=== PATIENT | male | born 1945 | race Two or more races ===

== ENCOUNTER 2021-01-13 18:03 | Emergency (ER) | payer OTHER ==
[~2021-01-13] VITALS: Ht 170.2 cm; Wt 77.1 kg
[~2021-01-13 18:03] MED LIST: TRIA25CA
[2021-01-13 18:47] LABS: Basophils # (auto) 0 10 ^3/uL (0-0.2); Basophils % (auto) 0.3 % (0.0-2.0); Eosinophils # (auto) 0.2 10 ^3/uL (0-0.8); Eosinophils % (auto) 2.2 % (0.0-7.0); Hematocrit 44.3 % (41.0-53.0); Hemoglobin 15.3 g/dL (13.5-17.5); Lymphocytes # (auto) 1.8 10 ^3/uL (0.4-5.4); Lymphocytes % (auto) 23.8 % (10.0-50.0); Mean Corpuscular Hemoglobin 30.1 pg (28.0-32.0); Mean Corpuscular Hgb Conc. 34.6 g/dL (32.0-36.0); Mean Corpuscular Volume 87.1 fL (80.0-100.0); Monocytes # (auto) 0.7 10 ^3/uL (0-1.3); Monocytes % (auto) 9.8 % (0.0-12.0); Neutrophils # (auto) 4.9 10 ^3/uL (1.6-8.6); Neutrophils % (auto) 63.9 % (37.0-80.0); Nucleated Red Blood Cells % 0.2 %; Platelet Count (auto) 219 10^3/uL (140-450); Red Blood Cells 5.08 10^6/uL (4.5-5.90); Red Cell Distribution Width 14.1 % (11.8-14.3); White Blood Cell 7.6 10^3/uL (4.4-10.8)
[2021-01-13 19:06] LABS: Albumin 3.9 g/dL (3.4-5.0); Calcium 9.3 mg/dL (8.5-10.1); Magnesium 2.3 mg/dL (1.6-2.6)
[2021-01-13 19:10] LABS: BUN/Creatinine Ratio 15.1; Bilirubin, Total 0.5 mg/dL (0.2-1.0); Total Protein 8.6 g/dL (6.4-8.2)
[2021-01-13 19:14] LABS: Potassium 2.6 mmol/L (3.5-5.1)
[2021-01-13] MEDS ORDERED: POTASSIUM CHL 20 Meq TABLET PO ONE (19:30)
[2021-01-13] MEDS ORDERED: POTASSIUM EFFERVESENT TAB 25 MEQ PO ONE (22:15)
[2021-01-13] MEDS ORDERED: POTASSIUM CHL 20MEQ/100ML 100 ML IV ONE (22:15)
[2021-01-14 00:45] VITALS: BP 137/88
== END 2021-01-14 01:40 | disposition home or self-care (01) ==
LOC: ER 18:03
DX: E87.6 Hypokalemia (principal); T50.2X5A Adverse effect of carbonic-anhydrase inhibitors, benzothiadiazides and other diuretics, initial encounter; E78.5 Hyperlipidemia, unspecified; I10 Essential (primary) hypertension; Y92.89 Other specified places as the place of occurrence of the external cause
CPT/HCPCS: 36415; 80053; 83735; 84132; 85025; 93005; 96365; 96366; 99285; J3480

== ENCOUNTER 2023-02-19 01:10 | Inpatient (IN) | payer OTHER, MEDICAID ==
[~2023-02-19] VITALS: Ht 167.6 cm; Wt 91.8 kg
[2023-02-19 02:06] LABS: Urine WBC None Seen /hpf (0 - 3)
[2023-02-19 02:24] LABS: Urine Bacteria NONE SEEN /hpf (None Seen); Urine Blood 3+ /uL (Negative)
[2023-02-19 02:33] LABS: Basophils # (auto) 0 10 ^3/uL (0-0.2); Basophils % (auto) 0.4 % (0.0-2.0); Eosinophils # (auto) 0.1 10 ^3/uL (0-0.8); Eosinophils % (auto) 0.4 % (0.0-7.0); Hematocrit 47.5 % (41.0-53.0); Hemoglobin 16.3 g/dL (13.5-17.5); Lymphocytes # (auto) 1.1 10 ^3/uL (0.4-5.4); Lymphocytes % (auto) 9.6 % (10.0-50.0); Mean Corpuscular Hemoglobin 29.8 pg (28.0-32.0); Mean Corpuscular Hgb Conc. 34.3 g/dL (32.0-36.0); Mean Corpuscular Volume 86.9 fL (80.0-100.0); Monocytes # (auto) 0.6 10 ^3/uL (0-1.3); Monocytes % (auto) 4.9 % (0.0-12.0); Neutrophils # (auto) 9.8 10 ^3/uL (1.6-8.6); Neutrophils % (auto) 84.7 % (37.0-80.0); Nucleated Red Blood Cells % 0.1 %; Red Blood Cells 5.46 10^6/uL (4.5-5.90); Red Cell Distribution Width 14.2 % (11.8-14.3); White Blood Cell 11.6 10^3/uL (4.4-10.8)
[2023-02-19 02:54] LABS: Albumin 3.8 g/dL (3.4-5.0); BUN/Creatinine Ratio 13.2 (10.0-20.0); Calcium 9.7 mg/dL (8.5-10.1); Potassium 3.4 mmol/L (3.5-5.1)
[2023-02-19 02:57] LABS: Bilirubin, Total 0.6 mg/dL (0.2-1.0); Total Protein 8.1 g/dL (6.4-8.2)
[2023-02-19] MEDS ORDERED: CEPHALEXIN 250 MG CAP PO ONE (03:45)
[2023-02-19] MEDS ORDERED: CEPH-510 PO (03:47)
[2023-02-19] MEDS ORDERED: HYDROcodone-ACET 5/325MG TAB PO PRN (10:30)
[2023-02-19] MEDS ORDERED: NITROGLYCERIN 0.4 MG SL TAB SL PRN (10:30)
[2023-02-19] MEDS ORDERED: ACETAMINOPHEN 325 MG TAB PO PRN (10:30)
[2023-02-19] MEDS ORDERED: MORPHINE SULFATE INJ 2 MG/ml SYRG IV PRN ×2 (10:30)
[2023-02-19] MEDS: hydrALAZINE HCL 20 MG/ML VL IV PRN ×2 (12:09→18:09)
[2023-02-19] MEDS ORDERED: DEXTROSE (50%) 50ML SYRG IV PRN (12:15)
[2023-02-19] MEDS ORDERED: cefTRIAXone 1GM/50ML D5W 50 ML IV ONE (12:15)
[2023-02-19] MEDS ORDERED: CARV25TA55 PO (12:17)
[2023-02-19] MEDS ORDERED: LOS25T PO (12:17)
[2023-02-19] MEDS ORDERED: ATOR40TA52 PO (12:17)
[2023-02-19] MEDS ORDERED: AMLO-496 PO (12:17)
[2023-02-19] MEDS: SODIUM CHLORIDE 0.9% 1,000 ML IV SCH ×2 (12:22→22:39)
[2023-02-19 13:43] LABS: Cholesterol 170 mg/dL (< 200)
[2023-02-19 13:46] LABS: HDL Cholesterol 32 mg/dL (40-59); LDL Cholesterol 115 mg/dL (< 100); Triglycerides 190 mg/dL (< 150)
[2023-02-19] MEDS ORDERED: ALFU10TA33 PO (15:06)
[2023-02-19] MEDS ORDERED: ASPI81CH49 PO (15:06)
[2023-02-19] MEDS ORDERED: POTA10TA51 PO (15:06)
[2023-02-19] MEDS ORDERED: DONE5TAB80 PO (15:06)
[2023-02-19] MEDS ORDERED: SPIR100T4 PO (15:06)
[2023-02-19] MEDS: LOSARTAN POTASSIUM 25 MG TAB PO SCH (16:32)
[2023-02-19] MEDS: amLODIPine BESYLATE 5 MG TAB PO SCH (16:33)
[2023-02-19] MEDS: ACCU-CHEK COMFORT CURVE STRIP VI SCH ×2 (17:30→22:28)
[2023-02-19] MEDS: InsuLIN REG 1unit/0.01ml Soln (100units/ml) SC SCH ×2 (17:33→22:41)
[2023-02-19] MEDS: CARVEDILOL 12.5 MG TAB PO SCH (22:39)
[2023-02-20 06:02] LABS: Basophils # (auto) 0.1 10 ^3/uL (0-0.2); Basophils % (auto) 0.9 % (0.0-2.0); Eosinophils # (auto) 0.1 10 ^3/uL (0-0.8); Eosinophils % (auto) 0.6 % (0.0-7.0); Hematocrit 39.9 % (41.0-53.0); Hemoglobin 14.2 g/dL (13.5-17.5); Lymphocytes # (auto) 1.6 10 ^3/uL (0.4-5.4); Lymphocytes % (auto) 14.8 % (10.0-50.0); Mean Corpuscular Hgb Conc. 35.6 g/dL (32.0-36.0); Mean Corpuscular Volume 84.1 fL (80.0-100.0); Monocytes # (auto) 0.7 10 ^3/uL (0-1.3); Monocytes % (auto) 6.2 % (0.0-12.0); Neutrophils # (auto) 8.5 10 ^3/uL (1.6-8.6); Neutrophils % (auto) 77.5 % (37.0-80.0); Nucleated Red Blood Cells % 0.4 %; Red Blood Cells 4.74 10^6/uL (4.5-5.90); Red Cell Distribution Width 14.1 % (11.8-14.3)
[2023-02-20 06:21] LABS: Albumin 2.8 g/dL (3.4-5.0); Calcium 8.3 mg/dL (8.5-10.1)
[2023-02-20 06:25] LABS: BUN/Creatinine Ratio 13.4 (10.0-20.0); Total Protein 6.4 g/dL (6.4-8.2)
[2023-02-20 06:40] LABS: Potassium 2.6 mmol/L (3.5-5.1)
[2023-02-20] MEDS: InsuLIN REG 1unit/0.01ml Soln (100units/ml) SC SCH ×4 (06:58→22:58)
[2023-02-20] MEDS: ACCU-CHEK COMFORT CURVE STRIP VI SCH ×4 (06:59→22:50)
[2023-02-20] MEDS ORDERED: POTASSIUM CHL 20 Meq TABLET PO ONE ×2 (07:00→16:15)
[2023-02-20] MEDS: SODIUM CHLORIDE 0.9% 1,000 ML IV SCH ×2 (08:15→18:15)
[2023-02-20] MEDS: cefTRIAXone 1GM/50ML D5W 50 ML IV SCH (09:07)
[2023-02-20] MEDS: ATORVASTATIN 20 MG TAB PO SCH (09:56)
[2023-02-20] MEDS: LOSARTAN POTASSIUM 25 MG TAB PO SCH (09:56)
[2023-02-20] MEDS: ENOXAPARIN SOD 40 MG/0.4 ML SYRINGE SC SCH (09:56)
[2023-02-20] MEDS: CARVEDILOL 12.5 MG TAB PO SCH ×2 (09:57→22:35)
[2023-02-20] MEDS: amLODIPine BESYLATE 5 MG TAB PO SCH (09:57)
[2023-02-20] MEDS ORDERED: amLODIPine BESYLATE 5 MG TAB PO SCH (10:00)
[2023-02-20] MEDS ORDERED: LOSARTAN POTASSIUM 25 MG TAB PO SCH (10:00)
[2023-02-20 22:00] VITALS: BP 148/86
[2023-02-20 23:11] VITALS: BP 148/86
[2023-02-21] MEDS: SODIUM CHLORIDE 0.9% 1,000 ML IV SCH ×2 (04:52→15:46)
[2023-02-21 05:00] VITALS: BP 119/73
[2023-02-21] MEDS: ACCU-CHEK COMFORT CURVE STRIP VI SCH ×4 (06:56→21:31)
[2023-02-21] MEDS: InsuLIN REG 1unit/0.01ml Soln (100units/ml) SC SCH ×4 (06:57→21:31)
[2023-02-21 08:00] VITALS: BP 123/78
[2023-02-21 09:00] VITALS: BP 123/78
[2023-02-21] MEDS: cefTRIAXone 1GM/50ML D5W 50 ML IV SCH (09:33)
[2023-02-21] MEDS: ENOXAPARIN SOD 40 MG/0.4 ML SYRINGE SC SCH (09:33)
[2023-02-21] MEDS: ATORVASTATIN 20 MG TAB PO SCH (09:34)
[2023-02-21] MEDS: LOSARTAN POTASSIUM 25 MG TAB PO SCH (09:34)
[2023-02-21] MEDS: amLODIPine BESYLATE 5 MG TAB PO SCH (09:35)
[2023-02-21] MEDS: CARVEDILOL 12.5 MG TAB PO SCH ×2 (09:45→21:32)
[2023-02-21 10:33] LABS: Basophils # (auto) 0 10 ^3/uL (0-0.2); Basophils % (auto) 0.2 % (0.0-2.0); Eosinophils # (auto) 0.1 10 ^3/uL (0-0.8); Hematocrit 39.2 % (41.0-53.0); Hemoglobin 13.3 g/dL (13.5-17.5); Lymphocytes # (auto) 1.6 10 ^3/uL (0.4-5.4); Lymphocytes % (auto) 17.9 % (10.0-50.0); Mean Corpuscular Hemoglobin 29.9 pg (28.0-32.0); Mean Corpuscular Hgb Conc. 33.9 g/dL (32.0-36.0); Mean Corpuscular Volume 88.2 fL (80.0-100.0); Monocytes # (auto) 0.6 10 ^3/uL (0-1.3); Monocytes % (auto) 7.4 % (0.0-12.0); Neutrophils # (auto) 6.5 10 ^3/uL (1.6-8.6); Neutrophils % (auto) 73.5 % (37.0-80.0); Red Blood Cells 4.45 10^6/uL (4.5-5.90); Red Cell Distribution Width 14.3 % (11.8-14.3); White Blood Cell 8.8 10^3/uL (4.4-10.8)
[2023-02-21 10:46] LABS: Albumin 2.7 g/dL (3.4-5.0); Calcium 8.2 mg/dL (8.5-10.1)
[2023-02-21 10:51] LABS: Bilirubin, Total 0.6 mg/dL (0.2-1.0)
[2023-02-21 10:56] LABS: Potassium 2.9 mmol/L (3.5-5.1)
[2023-02-21] MEDS: POTASSIUM CHL 20 Meq TABLET PO SCH ×2 (12:15→15:42)
[2023-02-21 13:00] VITALS: BP 160/90
[2023-02-21] MEDS ORDERED: IOHEXOL 300 MG/ML 100ML BOTTLE IJ ONE (16:38)
[2023-02-21 17:00] VITALS: BP 156/87
[2023-02-21] MEDS: FINASTERIDE 5 MG TAB PO SCH (20:19)
[2023-02-21] MEDS: TAMSULOSIN HYDROCHLORIDE 0.4 MG CAP PO SCH (20:19)
[2023-02-21 22:00] VITALS: BP 131/75
[2023-02-22] VITALS (7 sets, daily range): BP systolic 119–177; BP diastolic 67–91
[2023-02-22] MEDS: SODIUM CHLORIDE 0.9% 1,000 ML IV SCH ×3 (03:22→20:15)
[2023-02-22] MEDS: InsuLIN REG 1unit/0.01ml Soln (100units/ml) SC SCH ×4 (06:26→21:43)
[2023-02-22] MEDS: ACCU-CHEK COMFORT CURVE STRIP VI SCH ×4 (06:32→21:43)
[2023-02-22] MEDS: cefTRIAXone 1GM/50ML D5W 50 ML IV SCH (09:32)
[2023-02-22] MEDS: FINASTERIDE 5 MG TAB PO SCH (09:34)
[2023-02-22] MEDS: ATORVASTATIN 20 MG TAB PO SCH (09:35)
[2023-02-22] MEDS: amLODIPine BESYLATE 5 MG TAB PO SCH (09:36)
[2023-02-22] MEDS: CARVEDILOL 12.5 MG TAB PO SCH ×2 (09:36→21:55)
[2023-02-22] MEDS: LOSARTAN POTASSIUM 25 MG TAB PO SCH (09:36)
[2023-02-22] MEDS ORDERED: GADOTERATE MEG 10 MMOL/20ml INJ (0.5MMOL/ml) IV ONE (11:19)
[2023-02-22] MEDS: TAMSULOSIN HYDROCHLORIDE 0.4 MG CAP PO SCH (17:34)
[2023-02-22 18:30] LABS: Albumin 2.8 g/dL (3.4-5.0); BUN/Creatinine Ratio 15.6 (10.0-20.0); Calcium 8.4 mg/dL (8.5-10.1)
[2023-02-22 18:40] LABS: Bilirubin, Total 0.4 mg/dL (0.2-1.0); Total Protein 6.4 g/dL (6.4-8.2)
[2023-02-23] VITALS (7 sets, daily range): BP systolic 129–150; BP diastolic 74–88
[2023-02-23] MEDS: SODIUM CHLORIDE 0.9% 1,000 ML IV SCH ×2 (06:09→17:53)
[2023-02-23] MEDS: ACCU-CHEK COMFORT CURVE STRIP VI SCH ×4 (06:10→22:00)
[2023-02-23] MEDS: InsuLIN REG 1unit/0.01ml Soln (100units/ml) SC SCH ×4 (06:10→22:00)
[2023-02-23 06:43] LABS: Basophils # (auto) 0 10 ^3/uL (0-0.2); Basophils % (auto) 0.3 % (0.0-2.0); Eosinophils # (auto) 0.1 10 ^3/uL (0-0.8); Eosinophils % (auto) 1.4 % (0.0-7.0); Hematocrit 41.1 % (41.0-53.0); Hemoglobin 14.2 g/dL (13.5-17.5); Lymphocytes # (auto) 1.3 10 ^3/uL (0.4-5.4); Lymphocytes % (auto) 16.3 % (10.0-50.0); Mean Corpuscular Hemoglobin 30.2 pg (28.0-32.0); Mean Corpuscular Hgb Conc. 34.5 g/dL (32.0-36.0); Mean Corpuscular Volume 87.5 fL (80.0-100.0); Monocytes # (auto) 0.5 10 ^3/uL (0-1.3); Monocytes % (auto) 6.8 % (0.0-12.0); Neutrophils % (auto) 75.2 % (37.0-80.0); Nucleated Red Blood Cells % 0.1 %; Red Cell Distribution Width 13.9 % (11.8-14.3)
[2023-02-23 06:54] LABS: Albumin 2.7 g/dL (3.4-5.0); BUN/Creatinine Ratio 15.4 (10.0-20.0); Calcium 8.2 mg/dL (8.5-10.1)
[2023-02-23 06:57] LABS: Bilirubin, Total 0.6 mg/dL (0.2-1.0); Total Protein 6.6 g/dL (6.4-8.2)
[2023-02-23 06:59] LABS: Potassium 2.9 mmol/L (3.5-5.1)
[2023-02-23] MEDS: POTASSIUM CHL 20 Meq TABLET PO SCH ×3 (08:16→22:14)
[2023-02-23] MEDS: FINASTERIDE 5 MG TAB PO SCH (09:48)
[2023-02-23] MEDS: amLODIPine BESYLATE 5 MG TAB PO SCH (09:49)
[2023-02-23] MEDS: CARVEDILOL 12.5 MG TAB PO SCH ×2 (09:49→22:13)
[2023-02-23] MEDS: cefTRIAXone 1GM/50ML D5W 50 ML IV SCH (09:50)
[2023-02-23] MEDS: LOSARTAN POTASSIUM 25 MG TAB PO SCH (09:50)
[2023-02-23] MEDS: ATORVASTATIN 20 MG TAB PO SCH (09:55)
[2023-02-23 14:35] LABS: BUN/Creatinine Ratio 14.4 (10.0-20.0); Calcium 8.4 mg/dL (8.5-10.1)
[2023-02-23 14:38] LABS: Potassium 2.9 mmol/L (3.5-5.1)
[2023-02-23] MEDS ORDERED: POTASSIUM CHL 20 Meq TABLET PO ONE (14:45)
[2023-02-23] MEDS ORDERED: POTASSIUM CHLORIDE 40 MEQ, LIDOCAINE 1% (LOCAL ANESTH.) 4 ML in SODIUM CHL 0.9% 250 ML IV ONE (14:45)
[2023-02-23] MEDS: TAMSULOSIN HYDROCHLORIDE 0.4 MG CAP PO SCH (17:53)
[2023-02-24] MEDS: SODIUM CHLORIDE 0.9% 1,000 ML IV SCH ×2 (02:15→12:15)
[2023-02-24 05:00] VITALS: BP 142/77
[2023-02-24] MEDS: POTASSIUM CHL 20 Meq TABLET PO SCH ×3 (05:34→21:31)
[2023-02-24] MEDS: InsuLIN REG 1unit/0.01ml Soln (100units/ml) SC SCH ×4 (06:20→21:36)
[2023-02-24 06:22] LABS: Basophils # (auto) 0 10 ^3/uL (0-0.2); Basophils % (auto) 0.2 % (0.0-2.0); Eosinophils # (auto) 0.1 10 ^3/uL (0-0.8); Eosinophils % (auto) 1.5 % (0.0-7.0); Hematocrit 38.9 % (41.0-53.0); Hemoglobin 13.4 g/dL (13.5-17.5); Lymphocytes # (auto) 1.4 10 ^3/uL (0.4-5.4); Lymphocytes % (auto) 18.2 % (10.0-50.0); Mean Corpuscular Hgb Conc. 34.4 g/dL (32.0-36.0); Mean Corpuscular Volume 87.3 fL (80.0-100.0); Monocytes # (auto) 0.6 10 ^3/uL (0-1.3); Monocytes % (auto) 7.1 % (0.0-12.0); Neutrophils # (auto) 5.7 10 ^3/uL (1.6-8.6); Nucleated Red Blood Cells % 0.1 %; Red Blood Cells 4.46 10^6/uL (4.5-5.90); White Blood Cell 7.9 10^3/uL (4.4-10.8)
[2023-02-24 06:30] LABS: Albumin 2.7 g/dL (3.4-5.0); Calcium 8.5 mg/dL (8.5-10.1); Potassium 3.3 mmol/L (3.5-5.1)
[2023-02-24 06:34] LABS: BUN/Creatinine Ratio 15.8 (10.0-20.0); Bilirubin, Total 0.4 mg/dL (0.2-1.0); Total Protein 6.2 g/dL (6.4-8.2)
[2023-02-24] MEDS: ACCU-CHEK COMFORT CURVE STRIP VI SCH ×4 (06:48→21:32)
[2023-02-24 09:00] VITALS: BP 145/92
[2023-02-24] MEDS: ATORVASTATIN 20 MG TAB PO SCH (10:38)
[2023-02-24] MEDS: LOSARTAN POTASSIUM 25 MG TAB PO SCH (10:39)
[2023-02-24] MEDS: CARVEDILOL 12.5 MG TAB PO SCH ×2 (10:40→21:31)
[2023-02-24] MEDS: cefTRIAXone 1GM/50ML D5W 50 ML IV SCH (10:40)
[2023-02-24] MEDS: FINASTERIDE 5 MG TAB PO SCH (10:40)
[2023-02-24] MEDS: amLODIPine BESYLATE 5 MG TAB PO SCH (10:55)
[2023-02-24 13:00] VITALS: BP 140/81
[2023-02-24 16:42] VITALS: BP 131/76
[2023-02-24] MEDS: TAMSULOSIN HYDROCHLORIDE 0.4 MG CAP PO SCH (18:00)
[2023-02-24 19:12] VITALS: BP 145/92
== END 2023-02-24 21:40 | disposition home or self-care (01) | DRG 690 ==
LOC: ER 01:10 → TELE 10:29 → TELE-EAST 02-20 21:01
PROVIDERS: ADMIT Registered Nurse; ATTEND Internal Medicine
DX: N39.0 Urinary tract infection, site not specified (principal); N17.9 Acute kidney failure, unspecified; N13.8 Other obstructive and reflux uropathy; E11.22 Type 2 diabetes mellitus with diabetic chronic kidney disease; E87.6 Hypokalemia; I12.9 Hypertensive chronic kidney disease with stage 1 through stage 4 chronic kidney disease, or unspecified chronic kidney disease; N18.32 Chronic kidney disease, stage 3b; R33.8 Other retention of urine; Z20.822 Contact with and (suspected) exposure to COVID-19; N40.1 Benign prostatic hyperplasia with lower urinary tract symptoms; R31.0 Gross hematuria; N28.89 Other specified disorders of kidney and ureter; Z79.82 Long term (current) use of aspirin; Z79.899 Other long term (current) drug therapy
CPT/HCPCS: 36415; 72195; 74178; 74181; 80048; 80053; 80061; 81001; 82962; 83036; 84154; 84443; 85025; 87040; 87086; 87426; G0378; J0696; J1815; J2001

== ENCOUNTER 2023-03-02 10:19 | Inpatient (IN) | payer OTHER ==
[~2023-03-02] VITALS: Ht 167.6 cm; Wt 89.2 kg
[~2023-03-02 10:19] MED LIST changes: +ALFU10TA33 PO; +AMLO-496 PO; +ASPI81CH49 PO; +ATOR40TA52 PO; +CARV25TA55 PO; +DONE5TAB80 PO; +LOS25T PO; +POTA10TA51 PO; +SPIR100T4 PO
[2023-03-02 11:34] LABS: Albumin 3.3 g/dL (3.4-5.0); Calcium 9.1 mg/dL (8.5-10.1); Potassium 3.1 mmol/L (3.5-5.1)
[2023-03-02 11:38] LABS: BUN/Creatinine Ratio 10.8 (10.0-20.0); Bilirubin, Total 1.1 mg/dL (0.2-1.0); Total Protein 7.5 g/dL (6.4-8.2)
[2023-03-02 12:12] LABS: INR 1.03 (0.9-1.15); Partial Thromboplastin Time 27.8 sec (24.6-33.4)
[2023-03-02] MEDS ORDERED: POTASSIUM CHL 20 Meq TABLET PO ONE (14:15)
[2023-03-02 14:28] LABS: Basophils # (auto) 0 10 ^3/uL (0-0.2); Basophils % (auto) 0.2 % (0.0-2.0); Eosinophils # (auto) 0.1 10 ^3/uL (0-0.8); Eosinophils % (auto) 1.1 % (0.0-7.0); Hematocrit 43.5 % (41.0-53.0); Hemoglobin 14.7 g/dL (13.5-17.5); Lymphocytes # (auto) 1.3 10 ^3/uL (0.4-5.4); Lymphocytes % (auto) 10.5 % (10.0-50.0); Mean Corpuscular Hemoglobin 29.4 pg (28.0-32.0); Mean Corpuscular Hgb Conc. 33.8 g/dL (32.0-36.0); Mean Corpuscular Volume 86.9 fL (80.0-100.0); Monocytes # (auto) 0.6 10 ^3/uL (0-1.3); Monocytes % (auto) 4.8 % (0.0-12.0); Neutrophils # (auto) 10.3 10 ^3/uL (1.6-8.6); Neutrophils % (auto) 83.4 % (37.0-80.0); Nucleated Red Blood Cells % 0.2 %; Red Blood Cells 5.01 10^6/uL (4.5-5.90); Red Cell Distribution Width 14.2 % (11.8-14.3); White Blood Cell 12.3 10^3/uL (4.4-10.8)
[2023-03-02] MEDS ORDERED: NITROGLYCERIN 0.4 MG SL TAB SL PRN (16:00)
[2023-03-02] MEDS ORDERED: ONDANSETRON HCL 4 MG/2 ML VIAL IV PRN (16:00)
[2023-03-02] MEDS ORDERED: MORPHINE SULFATE INJ 2 MG/ml SYRG IV PRN ×2 (16:00)
[2023-03-02] MEDS ORDERED: ACETAMINOPHEN 500 MG TAB PO PRN (16:00)
[2023-03-02 16:06] LABS: Urine Bacteria NONE SEEN /hpf (None Seen); Urine Blood 3+ /uL (Negative); Urine Hyaline Cast FEW /lpf (0 - 2); Urine Mucus FEW (None Seen); Urine Specific Gravity 1.009 (1.001-1.035); Urine WBC 58 /hpf (0 - 3)
[2023-03-02] MEDS ORDERED: DEXTROSE (50%) 50ML SYRG IV PRN (16:15)
[2023-03-02] MEDS: InsuLIN REG 1unit/0.01ml Soln (100units/ml) SC SCH ×2 (17:00→22:00)
[2023-03-02] MEDS: ACCU-CHEK COMFORT CURVE STRIP VI SCH ×2 (17:25→22:22)
[2023-03-02] MEDS: DONEPEZIL HYDROCHLORIDE 5 MG TAB PO SCH (22:23)
[2023-03-02 22:24] VITALS: BP 165/82
[2023-03-02] MEDS: CARVEDILOL 3.125 MG TAB PO SCH (22:24)
[2023-03-02] MEDS: ATORVASTATIN 20 MG TAB PO SCH (22:25)
[2023-03-02] MEDS ORDERED: AMLO-489 PO (22:55)
[2023-03-02] MEDS ORDERED: METF-869 PO (22:55)
[2023-03-03 05:00] VITALS: BP 147/78
[2023-03-03 05:47] LABS: Basophils # (auto) 0 10 ^3/uL (0-0.2); Basophils % (auto) 0.3 % (0.0-2.0); Eosinophils # (auto) 0.2 10 ^3/uL (0-0.8); Eosinophils % (auto) 1.9 % (0.0-7.0); Hematocrit 41.5 % (41.0-53.0); Hemoglobin 14.5 g/dL (13.5-17.5); Lymphocytes # (auto) 1.6 10 ^3/uL (0.4-5.4); Lymphocytes % (auto) 15.2 % (10.0-50.0); Mean Corpuscular Hemoglobin 30.2 pg (28.0-32.0); Mean Corpuscular Hgb Conc. 34.9 g/dL (32.0-36.0); Mean Corpuscular Volume 86.5 fL (80.0-100.0); Monocytes # (auto) 0.7 10 ^3/uL (0-1.3); Monocytes % (auto) 6.3 % (0.0-12.0); Neutrophils # (auto) 8.2 10 ^3/uL (1.6-8.6); Neutrophils % (auto) 76.3 % (37.0-80.0); Nucleated Red Blood Cells % 0.1 %; Red Cell Distribution Width 14.2 % (11.8-14.3); White Blood Cell 10.7 10^3/uL (4.4-10.8)
[2023-03-03 06:09] LABS: Calcium 9.4 mg/dL (8.5-10.1)
[2023-03-03 06:29] LABS: BUN/Creatinine Ratio 14.5 (10.0-20.0)
[2023-03-03] MEDS: InsuLIN REG 1unit/0.01ml Soln (100units/ml) SC SCH ×4 (06:38→21:06)
[2023-03-03] MEDS: ACCU-CHEK COMFORT CURVE STRIP VI SCH ×4 (06:41→21:05)
[2023-03-03 06:47] LABS: Potassium 2.8 mmol/L (3.5-5.1)
[2023-03-03] MEDS ORDERED: POTASSIUM CHL 20 Meq TABLET PO ONE (07:30)
[2023-03-03] MEDS: amLODIPine BESYLATE 5 MG TAB PO SCH (08:36)
[2023-03-03] MEDS: cefTRIAXone 1GM/50ML D5W 50 ML IV SCH (08:37)
[2023-03-03] MEDS: LOSARTAN POTASSIUM 25 MG TAB PO SCH (08:37)
[2023-03-03 08:46] VITALS: BP 160/80
[2023-03-03] MEDS ORDERED: POTASSIUM CHLORIDE 40 MEQ, LIDOCAINE 1% (LOCAL ANESTH.) 4 ML in SODIUM CHL 0.9% 250 ML IV ONE (10:00)
[2023-03-03] MEDS: CARVEDILOL 3.125 MG TAB PO SCH ×2 (10:00→21:02)
[2023-03-03 13:00] VITALS: BP 140/84
[2023-03-03 16:45] VITALS: BP 181/99
[2023-03-03] MEDS: hydrALAZINE HCL 20 MG/ML VL IV PRN (17:31)
[2023-03-03] MEDS: ATORVASTATIN 20 MG TAB PO SCH (21:02)
[2023-03-03] MEDS: DONEPEZIL HYDROCHLORIDE 5 MG TAB PO SCH (21:03)
[2023-03-04] VITALS (8 sets, daily range): BP systolic 137–168; BP diastolic 74–94
[2023-03-04 05:27] LABS: Basophils # (auto) 0 10 ^3/uL (0-0.2); Basophils % (auto) 0.3 % (0.0-2.0); Eosinophils # (auto) 0.2 10 ^3/uL (0-0.8); Hematocrit 42.5 % (41.0-53.0); Hemoglobin 14.7 g/dL (13.5-17.5); Lymphocytes # (auto) 1.6 10 ^3/uL (0.4-5.4); Lymphocytes % (auto) 14.6 % (10.0-50.0); Mean Corpuscular Hemoglobin 30.2 pg (28.0-32.0); Mean Corpuscular Hgb Conc. 34.7 g/dL (32.0-36.0); Mean Corpuscular Volume 87.2 fL (80.0-100.0); Monocytes # (auto) 0.8 10 ^3/uL (0-1.3); Monocytes % (auto) 7.2 % (0.0-12.0); Neutrophils # (auto) 8.3 10 ^3/uL (1.6-8.6); Neutrophils % (auto) 75.9 % (37.0-80.0); Red Blood Cells 4.87 10^6/uL (4.5-5.90); Red Cell Distribution Width 14.3 % (11.8-14.3)
[2023-03-04 05:48] LABS: Albumin 3.3 g/dL (3.4-5.0); Calcium 9.5 mg/dL (8.5-10.1); Potassium 3.2 mmol/L (3.5-5.1)
[2023-03-04 05:52] LABS: BUN/Creatinine Ratio 15.1 (10.0-20.0); Bilirubin, Total 0.9 mg/dL (0.2-1.0); Total Protein 6.9 g/dL (6.4-8.2)
[2023-03-04] MEDS: ACCU-CHEK COMFORT CURVE STRIP VI SCH ×4 (06:29→22:10)
[2023-03-04] MEDS: InsuLIN REG 1unit/0.01ml Soln (100units/ml) SC SCH ×4 (06:32→22:20)
[2023-03-04] MEDS ORDERED: POTASSIUM CHL 20 Meq TABLET PO ONE (09:00)
[2023-03-04] MEDS: POTASSIUM CHL 20MEQ/100ML 100 ML IV SCH ×2 (09:24→11:41)
[2023-03-04] MEDS: cefTRIAXone 1GM/50ML D5W 50 ML IV SCH (09:29)
[2023-03-04] MEDS: LOSARTAN POTASSIUM 25 MG TAB PO SCH (09:30)
[2023-03-04] MEDS: CARVEDILOL 3.125 MG TAB PO SCH ×2 (09:31→22:10)
[2023-03-04] MEDS: amLODIPine BESYLATE 5 MG TAB PO SCH (09:31)
[2023-03-04] MEDS: hydrALAZINE HCL 20 MG/ML VL IV PRN (17:32)
[2023-03-04] MEDS: DONEPEZIL HYDROCHLORIDE 5 MG TAB PO SCH (22:09)
[2023-03-04] MEDS: ATORVASTATIN 20 MG TAB PO SCH (22:10)
[2023-03-05 05:00] VITALS: BP 143/77
[2023-03-05] MEDS: ACCU-CHEK COMFORT CURVE STRIP VI SCH ×4 (06:21→21:39)
[2023-03-05] MEDS: InsuLIN REG 1unit/0.01ml Soln (100units/ml) SC SCH ×4 (06:23→21:39)
[2023-03-05 08:20] VITALS: BP 145/82
[2023-03-05 08:23] LABS: Basophils # (auto) 0 10 ^3/uL (0-0.2); Basophils % (auto) 0.3 % (0.0-2.0); Eosinophils # (auto) 0.2 10 ^3/uL (0-0.8); Eosinophils % (auto) 1.8 % (0.0-7.0); Hematocrit 44.4 % (41.0-53.0); Hemoglobin 14.8 g/dL (13.5-17.5); Lymphocytes # (auto) 1.6 10 ^3/uL (0.4-5.4); Lymphocytes % (auto) 13.4 % (10.0-50.0); Mean Corpuscular Hemoglobin 29.2 pg (28.0-32.0); Mean Corpuscular Hgb Conc. 33.3 g/dL (32.0-36.0); Mean Corpuscular Volume 87.8 fL (80.0-100.0); Monocytes # (auto) 0.8 10 ^3/uL (0-1.3); Monocytes % (auto) 6.7 % (0.0-12.0); Neutrophils # (auto) 9.5 10 ^3/uL (1.6-8.6); Neutrophils % (auto) 77.8 % (37.0-80.0); Nucleated Red Blood Cells % 0.1 %; Red Blood Cells 5.06 10^6/uL (4.5-5.90); Red Cell Distribution Width 14.3 % (11.8-14.3); White Blood Cell 12.2 10^3/uL (4.4-10.8)
[2023-03-05 08:27] LABS: Albumin 3.2 g/dL (3.4-5.0); Calcium 9.7 mg/dL (8.5-10.1); Potassium 3.3 mmol/L (3.5-5.1)
[2023-03-05 08:30] LABS: BUN/Creatinine Ratio 15.5 (10.0-20.0); Bilirubin, Total 0.9 mg/dL (0.2-1.0); Total Protein 7.3 g/dL (6.4-8.2)
[2023-03-05 09:00] VITALS: BP 145/82
[2023-03-05] MEDS: LOSARTAN POTASSIUM 25 MG TAB PO SCH (09:43)
[2023-03-05] MEDS: CARVEDILOL 3.125 MG TAB PO SCH (09:43)
[2023-03-05] MEDS: amLODIPine BESYLATE 5 MG TAB PO SCH (09:44)
[2023-03-05] MEDS: cefTRIAXone 1GM/50ML D5W 50 ML IV SCH (09:44)
[2023-03-05 13:00] VITALS: BP 128/78
[2023-03-05] MEDS ORDERED: POTASSIUM EFFERVESENT TAB 25 MEQ PO ONE (15:30)
[2023-03-05] MEDS ORDERED: POTASSIUM CHLORIDE 40 MEQ, LIDOCAINE 1% (LOCAL ANESTH.) 4 ML in SODIUM CHL 0.9% 250 ML IV ONE (15:30)
[2023-03-05 17:00] VITALS: BP 117/67
[2023-03-05] MEDS: SODIUM CHLORIDE 0.9% 1,000 ML IV SCH (17:40)
[2023-03-05] MEDS: ATORVASTATIN 20 MG TAB PO SCH (21:45)
[2023-03-05] MEDS: DONEPEZIL HYDROCHLORIDE 5 MG TAB PO SCH (21:45)
[2023-03-05] MEDS: CARVEDILOL 12.5 MG TAB PO SCH (21:46)
[2023-03-05 22:00] VITALS: BP 135/84
[2023-03-06] VITALS (7 sets, daily range): BP systolic 102–155; BP diastolic 69–92
[2023-03-06 05:11] LABS: Basophils # (auto) 0 10 ^3/uL (0-0.2); Basophils % (auto) 0.2 % (0.0-2.0); Eosinophils # (auto) 0.2 10 ^3/uL (0-0.8); Eosinophils % (auto) 1.7 % (0.0-7.0); Hematocrit 41.1 % (41.0-53.0); Hemoglobin 13.9 g/dL (13.5-17.5); Lymphocytes # (auto) 1.5 10 ^3/uL (0.4-5.4); Lymphocytes % (auto) 13.7 % (10.0-50.0); Mean Corpuscular Hemoglobin 29.9 pg (28.0-32.0); Mean Corpuscular Hgb Conc. 33.9 g/dL (32.0-36.0); Mean Corpuscular Volume 88.4 fL (80.0-100.0); Monocytes # (auto) 0.8 10 ^3/uL (0-1.3); Monocytes % (auto) 7.2 % (0.0-12.0); Neutrophils # (auto) 8.6 10 ^3/uL (1.6-8.6); Neutrophils % (auto) 77.2 % (37.0-80.0); Nucleated Red Blood Cells % 0.1 %; Red Blood Cells 4.65 10^6/uL (4.5-5.90); Red Cell Distribution Width 14.3 % (11.8-14.3); White Blood Cell 11.1 10^3/uL (4.4-10.8)
[2023-03-06 05:42] LABS: Potassium 3.8 mmol/L (3.5-5.1)
[2023-03-06 05:45] LABS: BUN/Creatinine Ratio 18.4 (10.0-20.0); Calcium 9.2 mg/dL (8.5-10.1); Magnesium 1.9 mg/dL (1.6-2.6)
[2023-03-06 05:48] LABS: Bilirubin, Total 0.8 mg/dL (0.2-1.0); Total Protein 6.5 g/dL (6.4-8.2)
[2023-03-06] MEDS: hydrALAZINE HCL 20 MG/ML VL IV PRN (05:58)
[2023-03-06] MEDS: ACCU-CHEK COMFORT CURVE STRIP VI SCH ×4 (06:15→22:02)
[2023-03-06] MEDS: InsuLIN REG 1unit/0.01ml Soln (100units/ml) SC SCH ×4 (06:15→22:00)
[2023-03-06] MEDS: SODIUM CHLORIDE 0.9% 1,000 ML IV SCH ×2 (06:27→18:18)
[2023-03-06] MEDS: cefTRIAXone 1GM/50ML D5W 50 ML IV SCH (10:06)
[2023-03-06] MEDS: LOSARTAN POTASSIUM 25 MG TAB PO SCH (10:06)
[2023-03-06] MEDS: POTASSIUM EFFERVESENT TAB 25 MEQ PO SCH (10:06)
[2023-03-06] MEDS: CARVEDILOL 12.5 MG TAB PO SCH ×2 (10:09→22:05)
[2023-03-06] MEDS: amLODIPine BESYLATE 5 MG TAB PO SCH (10:10)
[2023-03-06] MEDS ORDERED: levoFLOXacin 500 MG TAB PO ONE (17:45)
[2023-03-06] MEDS: ATORVASTATIN 20 MG TAB PO SCH (22:04)
[2023-03-06] MEDS: DONEPEZIL HYDROCHLORIDE 5 MG TAB PO SCH (22:04)
[2023-03-07 05:00] VITALS: BP 150/94
[2023-03-07] MEDS: ACCU-CHEK COMFORT CURVE STRIP VI SCH ×4 (06:21→22:37)
[2023-03-07] MEDS: SODIUM CHLORIDE 0.9% 1,000 ML IV SCH ×2 (07:30→20:50)
[2023-03-07 07:40] LABS: Basophils # (auto) 0 10 ^3/uL (0-0.2); Basophils % (auto) 0.4 % (0.0-2.0); Eosinophils # (auto) 0.1 10 ^3/uL (0-0.8); Eosinophils % (auto) 1.3 % (0.0-7.0); Hematocrit 41.4 % (41.0-53.0); Hemoglobin 14.1 g/dL (13.5-17.5); Lymphocytes # (auto) 1.1 10 ^3/uL (0.4-5.4); Lymphocytes % (auto) 10.1 % (10.0-50.0); Mean Corpuscular Hemoglobin 30.1 pg (28.0-32.0); Mean Corpuscular Hgb Conc. 34.1 g/dL (32.0-36.0); Mean Corpuscular Volume 88.3 fL (80.0-100.0); Monocytes # (auto) 0.7 10 ^3/uL (0-1.3); Neutrophils % (auto) 82.2 % (37.0-80.0); Nucleated Red Blood Cells % 0.1 %; Red Blood Cells 4.69 10^6/uL (4.5-5.90); Red Cell Distribution Width 14.6 % (11.8-14.3)
[2023-03-07] MEDS: InsuLIN REG 1unit/0.01ml Soln (100units/ml) SC SCH ×4 (07:48→22:37)
[2023-03-07 08:02] LABS: Albumin 3.2 g/dL (3.4-5.0); Calcium 9.4 mg/dL (8.5-10.1)
[2023-03-07 08:07] LABS: BUN/Creatinine Ratio 17.2 (10.0-20.0); Bilirubin, Total 0.7 mg/dL (0.2-1.0)
[2023-03-07 09:00] VITALS: BP 128/76
[2023-03-07] MEDS: LOSARTAN POTASSIUM 25 MG TAB PO SCH (10:01)
[2023-03-07] MEDS: levoFLOXacin 250 MG TAB PO SCH (10:03)
[2023-03-07] MEDS: amLODIPine BESYLATE 5 MG TAB PO SCH (10:03)
[2023-03-07] MEDS: POTASSIUM EFFERVESENT TAB 25 MEQ PO SCH (10:04)
[2023-03-07] MEDS: CARVEDILOL 12.5 MG TAB PO SCH ×2 (10:05→22:51)
[2023-03-07 13:00] VITALS: BP 120/73
[2023-03-07] MEDS: FINASTERIDE 5 MG TAB PO SCH (13:43)
[2023-03-07 17:00] VITALS: BP 143/79
[2023-03-07] MEDS: TAMSULOSIN HYDROCHLORIDE 0.4 MG CAP PO SCH (18:59)
[2023-03-07] MEDS: [UNRECOGNIZED DRUG - OTHER] IR SCH ×3 (18:59→21:43)
[2023-03-07] MEDS: NS 0.9% IR SCH ×3 (18:59→21:43)
[2023-03-07 22:00] VITALS: BP 144/83
[2023-03-07] MEDS: DONEPEZIL HYDROCHLORIDE 5 MG TAB PO SCH (22:50)
[2023-03-07] MEDS: ATORVASTATIN 20 MG TAB PO SCH (22:51)
[2023-03-08] MEDS: NS 0.9% IR SCH ×3 (02:10→09:41)
[2023-03-08] MEDS: [UNRECOGNIZED DRUG - OTHER] IR SCH ×3 (02:10→09:41)
[2023-03-08 05:00] VITALS: BP 139/82
[2023-03-08 05:39] LABS: Basophils # (auto) 0 10 ^3/uL (0-0.2); Basophils % (auto) 0.2 % (0.0-2.0); Eosinophils # (auto) 0.1 10 ^3/uL (0-0.8); Eosinophils % (auto) 1.3 % (0.0-7.0); Hematocrit 36.6 % (41.0-53.0); Hemoglobin 12.5 g/dL (13.5-17.5); Lymphocytes % (auto) 10.4 % (10.0-50.0); Mean Corpuscular Hemoglobin 29.9 pg (28.0-32.0); Mean Corpuscular Hgb Conc. 34.3 g/dL (32.0-36.0); Mean Corpuscular Volume 87.2 fL (80.0-100.0); Monocytes # (auto) 0.6 10 ^3/uL (0-1.3); Monocytes % (auto) 6.5 % (0.0-12.0); Neutrophils # (auto) 7.6 10 ^3/uL (1.6-8.6); Neutrophils % (auto) 81.6 % (37.0-80.0); Red Blood Cells 4.19 10^6/uL (4.5-5.90); Red Cell Distribution Width 14.1 % (11.8-14.3); White Blood Cell 9.3 10^3/uL (4.4-10.8)
[2023-03-08 05:53] LABS: Potassium 3.8 mmol/L (3.5-5.1)
[2023-03-08 05:59] LABS: Albumin 2.9 g/dL (3.4-5.0); BUN/Creatinine Ratio 18.8 (10.0-20.0); Bilirubin, Total 0.6 mg/dL (0.2-1.0); Total Protein 6.2 g/dL (6.4-8.2)
[2023-03-08] MEDS: ACCU-CHEK COMFORT CURVE STRIP VI SCH ×4 (06:44→22:00)
[2023-03-08] MEDS: InsuLIN REG 1unit/0.01ml Soln (100units/ml) SC SCH ×4 (06:48→22:00)
[2023-03-08 09:00] VITALS: BP 131/85
[2023-03-08] MEDS: LOSARTAN POTASSIUM 25 MG TAB PO SCH (09:39)
[2023-03-08] MEDS: FINASTERIDE 5 MG TAB PO SCH (09:39)
[2023-03-08] MEDS: amLODIPine BESYLATE 5 MG TAB PO SCH (09:39)
[2023-03-08] MEDS: CARVEDILOL 12.5 MG TAB PO SCH ×2 (09:40→22:00)
[2023-03-08] MEDS: levoFLOXacin 250 MG TAB PO SCH (09:40)
[2023-03-08] MEDS: POTASSIUM EFFERVESENT TAB 25 MEQ PO SCH (09:41)
[2023-03-08] MEDS: SODIUM CHLORIDE 0.9% 1,000 ML IV SCH ×2 (10:10→23:30)
[2023-03-08 13:00] VITALS: BP 143/81
[2023-03-08 17:00] VITALS: BP 122/72
[2023-03-08] MEDS ORDERED: LACTULOSE 20Gm/30ML SOLN PO PRN (17:45)
[2023-03-08] MEDS ORDERED: LACTULOSE 20Gm/30ML SOLN PO ONE (17:45)
[2023-03-08] MEDS ORDERED: DOCUSATE SOD 100 MG CAP PO ONE (17:45)
[2023-03-08] MEDS: TAMSULOSIN HYDROCHLORIDE 0.4 MG CAP PO SCH (17:51)
[2023-03-08] MEDS: HYDROcodone-ACET 5/325MG TAB PO PRN ×2 (18:37→19:31)
[2023-03-08] MEDS ORDERED: FLEET ENEMA(ADULT) 135 ML PR ONE (18:45)
[2023-03-08 22:00] VITALS: BP 107/55
[2023-03-08] MEDS: ATORVASTATIN 20 MG TAB PO SCH (22:38)
[2023-03-08] MEDS: DOCUSATE SOD 100 MG CAP PO SCH (22:38)
[2023-03-08] MEDS: DONEPEZIL HYDROCHLORIDE 5 MG TAB PO SCH (22:38)
[2023-03-09 05:00] VITALS: BP 147/83
[2023-03-09] MEDS: InsuLIN REG 1unit/0.01ml Soln (100units/ml) SC SCH ×2 (06:28→11:30)
[2023-03-09] MEDS: ACCU-CHEK COMFORT CURVE STRIP VI SCH ×2 (06:29→11:33)
[2023-03-09 08:05] VITALS: BP 147/77
[2023-03-09 09:00] VITALS: BP 147/77
[2023-03-09] MEDS: POTASSIUM EFFERVESENT TAB 25 MEQ PO SCH (10:16)
[2023-03-09] MEDS: FINASTERIDE 5 MG TAB PO SCH (10:16)
[2023-03-09] MEDS: levoFLOXacin 250 MG TAB PO SCH (10:17)
[2023-03-09] MEDS: LOSARTAN POTASSIUM 25 MG TAB PO SCH (10:17)
[2023-03-09] MEDS: amLODIPine BESYLATE 5 MG TAB PO SCH (10:17)
[2023-03-09] MEDS: DOCUSATE SOD 100 MG CAP PO SCH (10:17)
[2023-03-09] MEDS: CARVEDILOL 12.5 MG TAB PO SCH (10:17)
[2023-03-09] MEDS ORDERED: DOCU-94 PO (10:50)
[2023-03-09] MEDS ORDERED: BACDST PO (10:50)
[2023-03-09] MEDS: SODIUM CHLORIDE 0.9% 1,000 ML IV SCH (13:23)
[2023-03-09 13:27] VITALS: BP 138/81
== END 2023-03-09 14:50 | disposition home or self-care (01) | DRG 698 ==
LOC: ER 10:19 → OVERFLOW 15:53 → EAST 21:59
PROVIDERS: ADMIT Nurse Practitioner Acute Care; ATTEND Internal Medicine Geriatric Medicine
DX: T83.511A Infection and inflammatory reaction due to indwelling urethral catheter, initial encounter (principal); A41.9 Sepsis, unspecified organism; N13.8 Other obstructive and reflux uropathy; N17.9 Acute kidney failure, unspecified; C64.2 Malignant neoplasm of left kidney, except renal pelvis; N40.1 Benign prostatic hyperplasia with lower urinary tract symptoms; N39.0 Urinary tract infection, site not specified; E11.9 Type 2 diabetes mellitus without complications; E78.00 Pure hypercholesterolemia, unspecified; E87.6 Hypokalemia; F03.90 Unspecified dementia, unspecified severity, without behavioral disturbance, psychotic disturbance, mood disturbance, and anxiety; I10 Essential (primary) hypertension; E66.9 Obesity, unspecified; R31.0 Gross hematuria; R00.1 Bradycardia, unspecified; Z79.82 Long term (current) use of aspirin; Z79.899 Other long term (current) drug therapy; Z90.49 Acquired absence of other specified parts of digestive tract; Z86.73 Personal history of transient ischemic attack (TIA), and cerebral infarction without residual deficits; Z82.49 Family history of ischemic heart disease and other diseases of the circulatory system; Z68.30 Body mass index [BMI] 30.0-30.9, adult; R31.9 Hematuria, unspecified
CPT/HCPCS: 36415; 71045; 76775; 80048; 80053; 81001; 82962; 83735; 83880; 84132; 84484; 85025; 85610; 85730; 86850; 86900; 86901; 87086; 87088; 87186; 93005; G0378; J0696; J1815; J2001; J3480

== ENCOUNTER 2023-07-06 11:16 | Inpatient (IN) | payer OTHER, MEDICAID ==
[~2023-07-06] VITALS: Ht 167.6 cm; Wt 87.7 kg
[~2023-07-06 11:16] MED LIST changes: -ALFU10TA33 PO; +ALFU1TAB15 PO; -AMLO-496 PO; +AMLO1TAB22 PO; +BACDST PO; +DOCU-94 PO; -DONE5TAB80 PO; +METF-869 PO
[2023-07-06 12:55] LABS: Alanine Aminotransferase 19 U/L (7-40); Alkaline Phosphatase 96 U/L (46-116); Anion Gap 10.1 (5-15); Aspartate Aminotransferase 19 U/L (13-40); BUN/Creatinine Ratio 11.4 (10.0-20.0); Blood Urea Nitrogen 20 mg/dL (9-23); Carbon Dioxide 27.9 mmol/L (20-30); Chloride 101 mmol/L (98-107); Glucose 220 mg/dL (74-106); Lactic Acid w/Reflex 2.4 mmol/L (0.4-2.0); Lipase 48 U/L (12-53); Magnesium 1.9 mg/dL (1.6-2.6); Sodium 139 mmol/L (136-145)
[2023-07-06 12:56] LABS: Basophils # (auto) 0 10 ^3/uL (0-0.2); Basophils % (auto) 0.4 % (0.0-2.0); Bilirubin, Total 0.7 mg/dL (0.2-1.0); Eosinophils # (auto) 0.2 10 ^3/uL (0-0.8); Eosinophils % (auto) 1.4 % (0.0-7.0); Hematocrit 41.3 % (41.0-53.0); Hemoglobin 14.1 g/dL (13.5-17.5); Lymphocytes # (auto) 1.7 10 ^3/uL (0.4-5.4); Lymphocytes % (auto) 16.1 % (10.0-50.0); Mean Corpuscular Hemoglobin 27.7 pg (28.0-32.0); Mean Corpuscular Hgb Conc. 34.1 g/dL (32.0-36.0); Mean Corpuscular Volume 81.2 fL (80.0-100.0); Monocytes # (auto) 0.6 10 ^3/uL (0-1.3); Monocytes % (auto) 5.9 % (0.0-12.0); Neutrophils % (auto) 76.2 % (37.0-80.0); Nucleated Red Blood Cells % 0.1 %; Red Blood Cells 5.08 10^6/uL (4.5-5.90); Red Cell Distribution Width 14.8 % (11.8-14.3); Total Protein 6.7 g/dL (5.7-8.2); White Blood Cell 10.5 10^3/uL (4.4-10.8)
[2023-07-06 13:00] VITALS: PULSE 54; RESP 15; O2SAT 96
[2023-07-06 13:02] LABS: Potassium 2.1 mmol/L (3.5-5.1)
[2023-07-06] MEDS ORDERED: POTASSIUM CHL 20 Meq TABLET PO ONE (13:15)
[2023-07-06 13:37] LABS: Rapid Influenza A Negative (Negative); Rapid Influenza B Negative (Negative)
[2023-07-06 13:37] LABS: COVID19 ANTIGEN SOFIA FIA NEGATIVE (NEGATIVE)
[2023-07-06] MEDS ORDERED: NITROGLYCERIN 0.4 MG SL TAB SL PRN (16:00)
[2023-07-06] MEDS ORDERED: MORPHINE SULFATE INJ 2 MG/ml SYRG IV PRN (16:00)
[2023-07-06] MEDS ORDERED: SOD CHL 0.9%/ KCL 40MEQ 1,000 ML IV ONE (16:15)
[2023-07-06] MEDS ORDERED: DEXTROSE (50%) 50ML SYRG IV PRN (16:15)
[2023-07-06] MEDS: InsuLIN REG 1unit/0.01ml Soln (100units/ml) SC SCH (18:00)
[2023-07-06] MEDS: ACCU-CHEK COMFORT CURVE STRIP VI SCH (18:16)
[2023-07-06 19:30] VITALS: PULSE 59; RESP 19; O2SAT 96
[2023-07-07] MEDS: ACCU-CHEK COMFORT CURVE STRIP VI SCH ×4 (01:00→20:04)
[2023-07-07] MEDS: InsuLIN REG 1unit/0.01ml Soln (100units/ml) SC SCH ×4 (01:16→20:05)
[2023-07-07 05:29] LABS: Basophils # (auto) 0 10 ^3/uL (0-0.2); Basophils % (auto) 0.3 % (0.0-2.0); Eosinophils # (auto) 0.1 10 ^3/uL (0-0.8); Eosinophils % (auto) 1.2 % (0.0-7.0); Hematocrit 38.7 % (41.0-53.0); Hemoglobin 13.3 g/dL (13.5-17.5); Lymphocytes # (auto) 1.6 10 ^3/uL (0.4-5.4); Lymphocytes % (auto) 18.9 % (10.0-50.0); Mean Corpuscular Hemoglobin 27.7 pg (28.0-32.0); Mean Corpuscular Hgb Conc. 34.3 g/dL (32.0-36.0); Mean Corpuscular Volume 80.8 fL (80.0-100.0); Monocytes # (auto) 0.6 10 ^3/uL (0-1.3); Monocytes % (auto) 7.5 % (0.0-12.0); Neutrophils # (auto) 6.2 10 ^3/uL (1.6-8.6); Neutrophils % (auto) 72.1 % (37.0-80.0); Red Blood Cells 4.79 10^6/uL (4.5-5.90); White Blood Cell 8.6 10^3/uL (4.4-10.8)
[2023-07-07 05:52] LABS: Anion Gap 6.1 (5-15); Carbon Dioxide 29.9 mmol/L (20-30); Chloride 105 mmol/L (98-107); Sodium 141 mmol/L (136-145)
[2023-07-07 05:53] LABS: Calcium 8.6 mg/dL (8.7-10.4)
[2023-07-07 05:58] LABS: BUN/Creatinine Ratio 9.6 (10.0-20.0); Blood Urea Nitrogen 16 mg/dL (9-23); Glucose 126 mg/dL (74-106)
[2023-07-07 06:15] LABS: Potassium 2.5 mmol/L (3.5-5.1)
[2023-07-07] MEDS ORDERED: POTASSIUM CHL 20MEQ/100ML 100 ML IV SCH (06:30)
[2023-07-07 07:30] VITALS: PULSE 59; RESP 18; O2SAT 98
[2023-07-07] MEDS ORDERED: POTASSIUM EFFERVESENT TAB 25 MEQ PO ONE (07:30)
[2023-07-07] MEDS: MAGNESIUM SULFATE 1GM/100ML 100 ML IV SCH ×3 (09:08→11:12)
[2023-07-07] MEDS: SOD CHL 0.9%/ KCL 40MEQ 1,000 ML IV SCH ×3 (09:12→20:31)
[2023-07-07] MEDS: LOSARTAN POTASSIUM 25 MG TAB PO SCH (10:05)
[2023-07-07] MEDS: ENOXAPARIN SOD 40 MG/0.4 ML SYRINGE SC SCH (10:06)
[2023-07-07] MEDS: amLODIPine BESYLATE 5 MG TAB PO SCH (10:06)
[2023-07-07] MEDS: POTASSIUM CHL 20 Meq TABLET PO SCH ×2 (13:39→22:10)
[2023-07-07 18:29] LABS: Potassium 3.2 mmol/L (3.5-5.1)
[2023-07-07 18:36] LABS: Magnesium 2.5 mg/dL (1.6-2.6)
[2023-07-07 20:00] VITALS: PULSE 67; RESP 16; O2SAT 93
[2023-07-07 23:42] LABS: COVID19 ANTIGEN SOFIA FIA NEGATIVE (NEGATIVE); Rapid Influenza A Negative (Negative); Rapid Influenza B Negative (Negative)
[2023-07-08] VITALS (12 sets, daily range): BP systolic 144–174; BP diastolic 89–108; PULSE 70–96; RESP 16–20; TEMP 36.7; O2SAT 93–97
[2023-07-08] MEDS: hydrALAZINE HCL 20 MG/ML VL IV PRN ×3 (00:05→21:40)
[2023-07-08] MEDS: ACCU-CHEK COMFORT CURVE STRIP VI SCH ×5 (00:08→23:02)
[2023-07-08] MEDS: InsuLIN REG 1unit/0.01ml Soln (100units/ml) SC SCH ×5 (00:08→23:05)
[2023-07-08] MEDS: SOD CHL 0.9%/ KCL 40MEQ 1,000 ML IV SCH ×2 (04:00→07:03)
[2023-07-08] MEDS: POTASSIUM CHL 20 Meq TABLET PO SCH (06:06)
[2023-07-08 07:03] LABS: Anion Gap 9.5 (5-15); Carbon Dioxide 27.5 mmol/L (20-30); Chloride 106 mmol/L (98-107); Sodium 143 mmol/L (136-145)
[2023-07-08 07:05] LABS: Calcium 8.8 mg/dL (8.7-10.4)
[2023-07-08 07:09] LABS: BUN/Creatinine Ratio 10.1 (10.0-20.0); Blood Urea Nitrogen 14 mg/dL (9-23); Glucose 143 mg/dL (74-106)
[2023-07-08 07:10] LABS: Magnesium 1.8 mg/dL (1.6-2.6)
[2023-07-08 08:14] LABS: Potassium 2.9 mmol/L (3.5-5.1)
[2023-07-08] MEDS: LOSARTAN POTASSIUM 25 MG TAB PO SCH (09:26)
[2023-07-08] MEDS: amLODIPine BESYLATE 5 MG TAB PO SCH (09:26)
[2023-07-08] MEDS: ENOXAPARIN SOD 40 MG/0.4 ML SYRINGE SC SCH (09:27)
[2023-07-08] MEDS ORDERED: POTASSIUM EFFERVESENT TAB 25 MEQ PO ONE (12:45)
[2023-07-08] MEDS: POTASSIUM CHLORIDE 40 MEQ in SOD CHL 0.45% 1,000 ML IV SCH (19:34)
[2023-07-08] MEDS: POTASSIUM EFFERVESENT TAB 25 MEQ GT SCH (21:19)
[2023-07-09 05:00] VITALS: BP 146/90; PULSE 91; RESP 18; TEMP 98.6; O2SAT 95
[2023-07-09] MEDS: ACCU-CHEK COMFORT CURVE STRIP VI SCH ×2 (05:31→11:46)
[2023-07-09] MEDS: InsuLIN REG 1unit/0.01ml Soln (100units/ml) SC SCH ×2 (05:40→11:53)
[2023-07-09] MEDS: POTASSIUM CHLORIDE 40 MEQ in SOD CHL 0.45% 1,000 ML IV SCH (05:41)
[2023-07-09 08:00] VITALS: PULSE 74; RESP 16; O2SAT 96
[2023-07-09 08:02] VITALS: BP 174/96; TEMP 36.7
[2023-07-09] MEDS: POTASSIUM EFFERVESENT TAB 25 MEQ GT SCH (08:54)
[2023-07-09] MEDS: LOSARTAN POTASSIUM 25 MG TAB PO SCH (08:55)
[2023-07-09] MEDS: ENOXAPARIN SOD 40 MG/0.4 ML SYRINGE SC SCH (08:55)
[2023-07-09] MEDS: amLODIPine BESYLATE 5 MG TAB PO SCH (08:56)
[2023-07-09 09:07] VITALS: BP 154/94; PULSE 74; RESP 16; TEMP 97.9; O2SAT 94
[2023-07-09 10:22] LABS: Chloride 106 mmol/L (98-107); Potassium 3.8 mmol/L (3.5-5.1); Sodium 142 mmol/L (136-145)
[2023-07-09 10:23] LABS: Anion Gap 7.5 (5-15); Carbon Dioxide 28.5 mmol/L (20-30)
[2023-07-09 10:28] LABS: BUN/Creatinine Ratio 7.1 (10.0-20.0); Blood Urea Nitrogen 10 mg/dL (9-23); Glucose 177 mg/dL (74-106)
[2023-07-09 11:57] VITALS: BP 154/94; TEMP 36.6
[2023-07-09 12:48] VITALS: BP 153/92; PULSE 81; RESP 16; TEMP 98.4; O2SAT 97
== END 2023-07-09 15:00 | disposition home or self-care (01) | DRG 644 ==
LOC: ER 11:16 → EDBD 11:16 → EDUNIT# 11:16 → TELE 16:02 → TELE-WESTW 07-07 22:24
PROVIDERS: ADMIT Nurse Practitioner Acute Care; ATTEND Internal Medicine Geriatric Medicine
DX: E26.09 Other primary hyperaldosteronism (principal); C64.9 Malignant neoplasm of unspecified kidney, except renal pelvis; R55 Syncope and collapse; E27.9 Disorder of adrenal gland, unspecified; I12.9 Hypertensive chronic kidney disease with stage 1 through stage 4 chronic kidney disease, or unspecified chronic kidney disease; E11.22 Type 2 diabetes mellitus with diabetic chronic kidney disease; N18.32 Chronic kidney disease, stage 3b; E87.6 Hypokalemia; E78.5 Hyperlipidemia, unspecified; E86.0 Dehydration; Z20.822 Contact with and (suspected) exposure to COVID-19; F03.90 Unspecified dementia, unspecified severity, without behavioral disturbance, psychotic disturbance, mood disturbance, and anxiety; N40.0 Benign prostatic hyperplasia without lower urinary tract symptoms; Z79.899 Other long term (current) drug therapy; Z82.49 Family history of ischemic heart disease and other diseases of the circulatory system; Z85.528 Personal history of other malignant neoplasm of kidney; Z86.718 Personal history of other venous thrombosis and embolism; Z86.73 Personal history of transient ischemic attack (TIA), and cerebral infarction without residual deficits; Z90.49 Acquired absence of other specified parts of digestive tract
CPT/HCPCS: 36415; 70450; 71045; 80048; 80053; 82962; 83036; 83605; 83690; 83735; 83880; 84132; 84484; 85025; 87040; 87426; 87804; 93005; 93306; G0378; J1815; J3480

== ENCOUNTER 2023-08-30 11:32 | Emergency (ER) | payer OTHER, MEDICAID ==
[~2023-08-30] VITALS: Ht 167.6 cm; Wt 87.5 kg
[~2023-08-30 11:32] MED LIST changes: -BACDST PO; -SPIR100T4 PO; -TRIA25CA
[2023-08-30 11:50] VITALS: BP 220/125; RESP 18; O2SAT 97
[2023-08-30] MEDS ORDERED: cloNIDine HCL 0.1 MG TAB PO ONE (12:15)
[2023-08-30 12:33] LABS: Urine Bacteria NONE SEEN /hpf (None Seen); Urine Blood TRACE /uL (Negative); Urine Clarity Clear (Clear); Urine Color Yellow (Yellow); Urine Protein, UAD 2+ (Negative); Urine Specific Gravity 1.015 (1.001-1.035); Urine Urobilinogen Normal (Negative); Urine WBC 3 /hpf (0 - 3); Urine pH 6.5 (5.0-8.0)
[2023-08-30 12:49] LABS: Basophils # (auto) 0 10 ^3/uL (0-0.2); Basophils % (auto) 0.5 % (0.0-2.0); Eosinophils # (auto) 0.2 10 ^3/uL (0-0.8); Eosinophils % (auto) 1.6 % (0.0-7.0); Hematocrit 44.8 % (41.0-53.0); Hemoglobin 15.3 g/dL (13.5-17.5); Lymphocytes # (auto) 2.1 10 ^3/uL (0.4-5.4); Lymphocytes % (auto) 21.3 % (10.0-50.0); Mean Corpuscular Hemoglobin 28.5 pg (28.0-32.0); Mean Corpuscular Hgb Conc. 34.2 g/dL (32.0-36.0); Mean Corpuscular Volume 83.6 fL (80.0-100.0); Monocytes # (auto) 0.7 10 ^3/uL (0-1.3); Monocytes % (auto) 7.1 % (0.0-12.0); Neutrophils # (auto) 6.7 10 ^3/uL (1.6-8.6); Neutrophils % (auto) 69.5 % (37.0-80.0); Red Blood Cells 5.36 10^6/uL (4.5-5.90); Red Cell Distribution Width 16.1 % (11.8-14.3); White Blood Cell 9.7 10^3/uL (4.4-10.8)
[2023-08-30 13:02] LABS: INR 0.98 (0.9-1.15); Prothrombin Time 10.3 sec (9.3-11.8)
[2023-08-30 13:18] LABS: Alanine Aminotransferase 23 U/L (7-40); Albumin 4.6 g/dL (3.2-4.8); Alkaline Phosphatase 101 U/L (46-116); Anion Gap 7 (5-15); Aspartate Aminotransferase 11 U/L (13-40); BUN/Creatinine Ratio 11.6 (10.0-20.0); Bilirubin, Total 0.8 mg/dL (0.2-1.0); Blood Urea Nitrogen 22 mg/dL (9-23); Calcium 9.7 mg/dL (8.5-10.1); Carbon Dioxide 27 mmol/L (20-30); Chloride 105 mmol/L (98-107); Glucose 134 mg/dL (74-106); Potassium 3.7 mmol/L (3.5-5.1); Sodium 139 mmol/L (136-145); Total Protein 7.5 g/dL (5.7-8.2)
[2023-08-30 14:14] VITALS: PULSE 66
[2023-08-30] MEDS ORDERED: LABETALOL HCL 5 MG/ML 4ML SYRINGE IV ONE (14:30)
== END 2023-08-30 16:43 | disposition left against medical advice (07) ==
LOC: ER 11:32
DX: I10 Essential (primary) hypertension (principal); E11.9 Type 2 diabetes mellitus without complications; E78.5 Hyperlipidemia, unspecified; R51.9 Headache, unspecified; Z90.49 Acquired absence of other specified parts of digestive tract; Z79.899 Other long term (current) drug therapy; Z79.01 Long term (current) use of anticoagulants
CPT/HCPCS: 36415; 70450; 71045; 80053; 81001; 84484; 85025; 85610; 85730; 93005

== ENCOUNTER 2024-07-18 09:10 | Emergency (ER) | payer OTHER, MEDICAID ==
[~2024-07-18] VITALS: Ht 182.9 cm; Wt 95.3 kg
[~2024-07-18 09:10] MED LIST changes: +POTA-36 PO; -POTA10TA51 PO
[2024-07-18 09:53] LABS: Basophils # (auto) 0 10 ^3/uL (0-0.2); Basophils % (auto) 0.4 % (0.0-2.0); Eosinophils # (auto) 0.1 10 ^3/uL (0-0.8); Eosinophils % (auto) 1.2 % (0.0-7.0); Hematocrit 47.2 % (41.0-53.0); Lymphocytes # (auto) 1.3 10 ^3/uL (0.4-5.4); Mean Corpuscular Hemoglobin 30.3 pg (28.0-32.0); Mean Corpuscular Volume 89.2 fL (80.0-100.0); Monocytes # (auto) 0.6 10 ^3/uL (0-1.3); Monocytes % (auto) 6.1 % (0.0-12.0); Neutrophils # (auto) 7.9 10 ^3/uL (1.6-8.6); Neutrophils % (auto) 79.3 % (37.0-80.0); Nucleated Red Blood Cells % 0.1 %; Platelet Count (auto) 207 10^3/uL (140-450); Red Blood Cells 5.29 10^6/uL (4.5-5.90); Red Cell Distribution Width 15.4 % (11.8-14.3); White Blood Cell 9.9 10^3/uL (4.4-10.8)
[2024-07-18 10:04] LABS: Alanine Aminotransferase 16 U/L (7-40); Albumin 4.2 g/dL (3.2-4.8); Alkaline Phosphatase 101 U/L (46-116); Anion Gap 7 (5-15); Aspartate Aminotransferase 26 U/L (13-40); BUN/Creatinine Ratio 9.7 (10.0-20.0); Bilirubin, Total 1.1 mg/dL (0.2-1.0); Blood Urea Nitrogen 20 mg/dL (9-23); Calcium 9.7 mg/dL (8.7-10.4); Carbon Dioxide 22 mmol/L (20-30); Chloride 110 mmol/L (98-107); Glucose 163 mg/dL (74-106); Magnesium 1.9 mg/dL (1.6-2.6); Potassium 4.6 mmol/L (3.5-5.1); Sodium 139 mmol/L (136-145); Total Protein 7.2 g/dL (5.7-8.2)
[2024-07-18 10:45] VITALS: PULSE 75; RESP 13; O2SAT 94
[2024-07-18 10:56] LABS: INR 1.07 (0.9-1.15); Partial Thromboplastin Time 30.2 SEC (24.5-34.5); Prothrombin Time 11.3 sec (9.3-11.8)
[2024-07-18] MEDS: PROPOFOL 100 ML IV ONE (10:57)
[2024-07-18] MEDS: PROPOFOL 100 ML IV SCH (11:00)
[2024-07-18] MEDS: levETIRAcetam 1000 mg/100ml 100 ML IV ONE (11:27)
[2024-07-18] MEDS: ETOMIDATE (2MG/ML) 20ML VIAL IV ONE (11:35)
[2024-07-18] MEDS: SUCCINYLCHOLINE CHLORIDE 20 MG/ML 10ML VIAL IV ONE (11:35)
[2024-07-18] MEDS: SODIUM CHLORIDE 0.9% 500 ML IVB ONE (11:51)
[2024-07-18 12:10] LABS: Urine Bacteria None Seen /hpf (None Seen)
[2024-07-18 12:22] LABS: Base Excess -5.6 mmol/L (-2.0-3.0)
[2024-07-18 12:45] VITALS: TEMP 98
[2024-07-18 12:47] LABS: Urine Blood 1+ /uL (Negative); Urine Clarity Clear (Clear); Urine Color Colorless (Yellow); Urine Protein, UAD TRACE (Negative); Urine Specific Gravity 1.008 (1.001-1.035); Urine Urobilinogen Normal (Negative); Urine WBC <1 /hpf (0 - 3); Urine pH 6.5 (5.0-9.0)
[2024-07-18 13:00] VITALS: BP 114/70; PULSE 82; RESP 14; O2SAT 96
== END 2024-07-18 14:41 | disposition short-term general hospital (02) ==
LOC: ER 09:10 → EDBD 09:10 → EDUNIT# 09:10 → ER 14:41
DX: I62.9 Nontraumatic intracranial hemorrhage, unspecified (principal); R41.82 Altered mental status, unspecified; I16.9 Hypertensive crisis, unspecified; I10 Essential (primary) hypertension; E11.9 Type 2 diabetes mellitus without complications; E78.5 Hyperlipidemia, unspecified
CPT/HCPCS: 31500; 36415; 36600; 70450; 71045; 80053; 81001; 82805; 83605; 83735; 83880; 84484; 85025; 85610; 85730; 87040; 87070; 87086; 87205; 96361; 96365; 99291; J0330; J1953; J2704; J7040; 93005